=== PATIENT | female | born 1990 ===

== ENCOUNTER 2017-05-05 06:37 | Inpatient (IN) | payer MEDICAID ==
[2017-05-05] MEDS ORDERED: Sodium Chloride 0.9% 1,000 ML IV ONE ×2 (07:28→09:20)
[2017-05-05] MEDS ORDERED: DiphenhydrAMINE 50 mg/ml Inj IVP STA (07:29)
[2017-05-05] MEDS ORDERED: DiphenhydrAMINE 50 mg/ml Inj ONE (07:33)
[2017-05-05] MEDS ORDERED: Sodium Chloride 0.9% 1,000 ML ONE (07:33)
[2017-05-05 07:37] LABS: URINE BACTERIA RARE (<OCC); URINE BILIRUBIN NEGATIVE (NEGATIVE); URINE BLOOD NEGATIVE (NEGATIVE); URINE COLOR Yellow (YELLOW); URINE GLUCOSE (UA) NORMAL (Normal); URINE KETONE NEGATIVE (NEGATIVE); URINE LEUKOCYTE ESTERASE NEG Leu/uL (Negative); URINE PROTEIN 1+ mg/dL (NEGATIVE); URINE UROBILINOGEN NORMAL mg/dL (0.2-1.0); WBC URINE 2 /hpf (0-5)
--- NOTE | 2017-05-05 07:58 | C.PDOC ---
History Of Present Illness 26 y/o female, with no significant PMHx, is brought to ED by ambulance for evaluation of shortness of breath, and anxiety. As per EMS, pt smoked 5 bags of crack and 1 bag of heroin. At present time, pt appears to be anxious, crying, restless, poot historian. Although, pt is complaining of generalized body pain. Otherwise, denies chest pain, palpitations, v/d, weakness. As per EMS reports, 3 small kids were noted in house. As per RN Ray, previous pt 's RN initiated call to DYFs to notified. Time Seen by Provider: 05/05/17 07:19 Chief Complaint (Nursing): Shortness Of Breath History Per: Patient, EMS History/Exam Limitations: no limitations Onset/Duration Of Symptoms: Gradual Current Symptoms Are (Timing): Still Present Associated Symptoms: Anxiety. denies: Sweating, Chest Pain, Bloody Cough, Productive Cough, Dizziness, Light-headedness Additional History Per: EMS Past Medical History Reviewed: Historical Data, Nursing Documentation, Vital Signs Vital Signs: Last Vital Signs Temp 98.6 F 05/05/17 06:42 Pulse 85 05/05/17 06:42 Resp 14 05/05/17 06:56 BP 142/87 05/05/17 06:42 Pulse Ox 100 05/05/17 11:16 - [facility] Procedures DETOXIFICATION SERVICES FOR SUBSTANCE ABUSE TREATMENT (05/31/16) GROUP CAR REPAIRER APPRENTICE FOR SUBSTANCE ABUSE TREATMENT, PSYCHOEDUCATION (05/31/16) Family History: States: Unknown Family Hx - Social History Hx Alcohol Use: No Hx Substance Use: Yes - Immunization History Hx Tetanus Toxoid Vaccination: No Hx Influenza Vaccination: No Hx Pneumococcal Vaccination: No Review Of Systems Except As Marked, All Systems Reviewed And Found Negative. Constitutional: Positive for: Other (generalized body pain). Negative for: Fever, Chills Cardiovascular: Negative for: Chest Pain, Palpitations, Edema, Light Headedness Respiratory: Positive for: Shortness of Breath. Negative for: Cough, Hemoptysis , Sputum Gastrointestinal: Negative for: Nausea, Vomiting, Abdominal Pain Neurological: Negative for: Headache, Dizziness Physical Exam - Physical Exam Appears: Non-toxic, No Acute Distress, Other (anxious) Skin: Normal Color, Warm, Dry, No Rash Head: Atraumatic, Normacephalic Eye(s): bilateral: Normal Inspection Oral Mucosa: Moist, No Drooling Neck: Normal ROM, Supple Chest: Symmetrical Cardiovascular: Rhythm Regular, No Murmur Respiratory: No Accessory Muscle Use, No Rales, No Rhonchi, No Wheezing Gastrointestinal/Abdominal: Soft, No Tenderness Extremity: Normal ROM, No Pedal Edema, No Deformity Extremity: Bilateral: Atraumatic Neurological/Psych: Oriented x3, Other (Responsive to verbal stimuli) ED Course And Treatment - Laboratory Results Result Diagrams: 05/05/17 07:58 05/05/17 07:58 ECG: Interpreted By Me, Viewed By Me ECG Rhythm: Sinus Rhythm ECG Interpretation: No Acute Changes Interpretation Of ECG: Normal axis deviation. No acute ST/T wave changes. Rate From EC (bpm) O2 Sat by Pulse Oximetry: 100 (on RA) Pulse Ox Interpretation: Normal - Radiology CXR: Interpreted by Me, Viewed By Me CXR Interpretation: Yes: No Acute Disease Progress Note: Blood work, UA, CXR, EKG ordered and reviewed. Pt was given Benadryl, and IV fluids. ED OBSERVATION Date of observation admission: 05/05/17 Time of observation admission: 07:15 - Observation admission statement Patient is being placed in observation because:: SOB, multisubstance overdose - Goals of Observation Goals of observation are:: Diagnostics, imaging, sx tx, neuro recheck - Progress Note Progress Note: 05/05/17 At 9"47, pt resting comfortably in bed, not in any apparent distress. Pt is easily awaken to verbal stimuli. AFebrile, hemodynamicaly stable. Neuorlogicaly intact. Blood work review and appears without acute abnormalities, EKG, CXR- normal study. AT 10:18, DYFs at bedside. At present time, pt is more awake, sober, AAO#3, ambulatory in ED with stable gait. Pt denies any somatic complaints at present time. Pt admits, had hx of depression in past, denies use antidepressant medication. As per DYFs, pt is restricted to return home, children in custody of pt's mother now. Pt was offered detox and agrees with plan. Crisis called to evaluate pt for possible detox admission. At 11:01, after pt was evaluated by Crisis and case discussed with , admission to detox accepted. Disposition - Disposition Disposition: HOSPITALIZED Disposition Time: 11:16 Condition: STABLE - Clinical Impression Clinical Impression: Opiate dependence - [place] / SOFTWARE CONFIGURATION MANAGER / Resident Statement MD/DO has reviewed & agrees with the documentation as recorded. - Scribe Statement The provider has reviewed the documentation as recorded by the Scribe Vincent Armstrong All medical record entries made by the Garyibvalentine were at my direction and personally dictated by me. I have reviewed the chart and agree that the record accurately reflects my personal performance of the history, physical exam, medical decision making, and the department course for this patient. I have also personally directed, reviewed, and agree with the discharge instructions and disposition.
[2017-05-05 08:06] LABS: BASO # 0.1 K/uL (0.0-0.2); BASO % 0.7 % (0.0-2.0); EOS # 0.6 K/uL (0.0-0.7); EOS % 3.8 % (0.0-4.0); HEMATOCRIT 40.3 % (34.0-47.0); LYMPH # 6.4 K/uL (1.0-4.3); LYMPH % 41.7 % (20.0-40.0); MEAN CELL VOLUME 77.7 fL (81.0-99.0); MEAN CORPUSCULAR HEMOGLOBIN 26.3 pg (27.0-31.0); MEAN CORPUSCULAR HGB CONC 33.9 g/dL (33.0-37.0); MEAN PLATELET VOLUME 9.5 fL (7.2-11.7); MONO # 0.8 K/uL (0.0-0.8); MONO % 5.1 % (0.0-10.0); NRBC % 0.1 % (0.0-2.0); RED CELL DISTRIBUTION WIDTH 14.3 % (11.5-14.5); WHITE BLOOD COUNT 15.4 K/uL (4.8-10.8)
[2017-05-05 08:19] LABS: ALB/GLOB RATIO 1.3 (1.0-2.1); ALCOHOL SERUM < 10 mg/dl (0-10); ALKALINE PHOSPHATASE 82 U/L (38-126); ALT/SGPT 32 U/L (9-52); AST/SGOT 34 U/L (14-36); BILIRUBIN,TOTAL 0.5 mg/dL (0.2-1.3); BLOOD UREA NITROGEN 11 mg/dL (7-17); CALCIUM 9.7 mg/dl (8.6-10.4); CARBON DIOXIDE 26 mmol/L (22-30); CHLORIDE 98 mmol/L (98-107); GFR AFRICAN-AMERICAN > 60; GLUCOSE,RANDOM 93 mg/dL (65-105); POTASSIUM 2.7 mmol/L (3.6-5.2); SODIUM 142 mmol/L (132-148); TOTAL PROTEIN 7.7 g/dL (6.3-8.3)
--- NOTE | 2017-05-05 10:29 | RAD ---
PROCEDURE: CHEST RADIOGRAPH, 1 VIEW HISTORY: Detox/Psy COMPARISON: None available. FINDINGS: LUNGS: Clear. PLEURA: No pneumothorax or pleural fluid seen. CARDIOVASCULAR: Normal. OSSEOUS STRUCTURES: No significant abnormalities. VISUALIZED UPPER ABDOMEN: Normal. OTHER FINDINGS: None. IMPRESSION: No active disease.
[2017-05-05 11:32] VITALS: RESP 18
[2017-05-05] MEDS ORDERED: Aluminum Hydroxide/Magnesium Hydroxide Susp (30 mL) PO PRN (12:34)
--- NOTE | 2017-05-05 15:20 | PCM.PSYCH ---
Initial Psychiatric Evaluation - Initial Psychiatric Evaluation Type of Admission: Voluntary Legal Status: Capacity Chief Complaint (in patient's own words): "I want to get sober" History of Present Illness and Precipitating Events: Patient is a 26 year old female, single, with 3 children (ages 2, 4, 6), who currently lives with her mother and 3 children in [place]. 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 When questioned about how she supports herself she states "I just don't have money." Patient is cooperative during the interview but seems evasive about some aspects of her history. Patient states that she was smoking last night and couldn't find a health science specialist, so she used the stove and thinks that's why she felt like she was going to pass out. Per ED chart, DYDONG is involved with case, b/c her mo called EMS, like last time and they called the police and DYFS. She implied that they didn't like the fact that she had "too many bottles around." And then of course they found out she was on drugs. Patient has a history of admission for detox in May 2016 at this hospital, after which she was doing well, maintained sobriety and was in an IOP ([facility]). She states that she relapsed in the beginning of March ( approximately 1 month ago) because her mom "called the roof service technician" on her. She was sent to [place] for a psych evaluation at that time and DYFS became involved, resulting in her mother being granted partial custody of her children. Patient reports heroin use for the past 1 month, starting with 10 bags per day and then trying to wean herself down to 2 bags per day more recently. First time use of heroin was in 2012. Patient also admits to using cocaine and crack for the first time 1 week ago, and golden for the first time 2 days ago. She denies use of ETOH or BZDs. At present, patient has mild wdw symptoms. Patient reports a psychiatric history of anxiety and depression; she states she saw a psychiatrist one time in 2014 but stopped seeing him because he wanted to prescribe her medication and she did not want to take any pills. She has not taken any psychiatric medications or seen a psychiatrist since that time. Psychiatric history: anxiety depression Medical history: denies Family history: no history of psychiatric illness or substance use Social history: Single 3 children (ages 2, 4, 6) - patient's mother shares custody Lives with mother and 3 children Unemployed, supposed to start job as junior legal secretary for [employer] tomorrow Not on probation or parole but has an open DYFS case Current Medications: Active Medications Generic Name Dose Route Start Last Admin Trade Name Freq PRN Reason Stop Dose Admin Al Hydrox/Mg Hydrox/Simethicone 30 ml 05/05/17 12:34 Maalox 30 Ml PO TID PRN Indigestion / Heartburn Clonidine HCl 0.1 mg 05/05/17 12:34 Catapres PO Q8 PRN COWS Score More or Equal to 5 Gabapentin 300 mg 05/05/17 18:00 Neurontin PO BID LINA Hydroxyzine HCl 50 mg 05/05/17 12:35 Atarax PO Q6H PRN Anxiety Ibuprofen 600 mg 05/05/17 12:35 Motrin Tab PO Q6H PRN Pain, moderate (4-7) Loperamide HCl 2 mg 05/05/17 12:34 Imodium PO Q8 PRN Diarrhea Ondansetron HCl 4 mg 05/05/17 12:34 Zofran Tab PO Q8 PRN Nausea/Vomiting Trazodone HCl 50 mg 05/05/17 12:35 Desyrel PO HS PRN Insomnia Past Psychiatric History - Past Psychiatric History Previous Treatment History: None Pertinent Medical Hx (Current Medical&Sleep Prob, Allergies): Allergies Allergy/AdvReac Type Severity Reaction Status Date / Time carrot AdvReac Intermediate SHORTNESS Verified 05/05/17 06:50 OF BREATH No Known Home Med 05/05/17 Review of Systems - Neurological Neurological: UNREMARKABLE - Psychiatric Psychiatric: As Per HPI, Abnormal Sleep Pattern, Anxiety. absent: Difficulty Concentrating, Hallucinations, Homicidal Ideation, Suicidal Ideation Mental Status Examination - Personal Presentation Personal Presentation: Looks stated age - Affect Affect: Constricted - Motor Activity Motor Activity: Calm - Reliability in Providing Information Reliability in Providing Information: Fair - Speech Speech: Organized - Mood Mood: Anxious - Formal Thought Process Formal Thought Process: No Impairment - Obsessions/Compulsions Obsessions: No Compulsions: No - Cognitive Functions Orientation: Person, Place, Situation, Time Sensorium: Alert Attention/Concentration: Attentive Estimate of Intelligence: Average Memory: Recent intact, as evidence by: Ability to recall events of the day, Remote intact, as evidenced by: Abilit to recall sig. life events - Risk Risk: Withdrawal, Diminished functioning - Strength & Assets Inventory Strength & Assets Inventory: Family support, Cooperative - Limitations Limitations: Other DSM 5 DX - DSM 5 DSM 5 Diagnosis: Opioid use disorder, severe Opioid withdrawal Cocaine use disorder ANxiety disorder - unspecified - Recommended/Plan of Treatment Treatment Recommendations and Plan of Treatment: Opiate use disorder, severe CBT and [place] psychoeducation supportive therapy, individual therapy Opiate withdrawal Monitor vital signs and withdrawal symptoms Neurontin 300mg PO BID Cocaine use disorder CBT and [place] psychoeducation supportive therapy, individual therapy Projected ELOS: 4-5 days Prognosis: fair
--- NOTE | 2017-05-05 15:23 | PCM.BM ---
<Lo Yepez - Last Filed: 05/05/17 15:21> Treatment Plan Problems - Problems identified on initial assessmt Potential for Opiate withdrawal Date Initiated: 05/05/17 Time Initiated: 15:22 Assessment reference: NA Status: Active Priority: 1 Treatment assets and liabiliti Patient Assests: ADL independent, cognitively intact Patient Liabilities: substance abuse - Milieu Protocol Maintain good personal hygiene: daily Encourage regular showers, daily Remind patient to perform daily oral care, daily Assist patient to perform ADL's Conduct patient checks and document Observation sheet: Q15 minutes Maintain personal safety: every shift Educate patient to report safety concerns to staff, every shift Monitor environment for contraband/sharps Medication safety: Monitor for expected outcome, potential side effects: every shift, Assess barriers to learning: every shift, Assess readiness for medication education: every shift <Loyd Armstrong - Last Filed: 05/05/17 18:36> - Diagnosis (1) Opioid use disorder, severe, dependence Status: Acute Interventions: 05/05/17 18:35 * Assess 7x/week regarding severity of withdrawal * Educate regarding risks, benefits, side effects and alternatives of medications * Use Motivational Interviewing for abstinence * Use CBT for relapse prevention * Medication management for withdrawal symptoms * Encourage medication assisted treatment * (2) Cocaine use disorder, severe, dependence Status: Acute Interventions: 05/05/17 18:36 * Assess 7x/week regarding severity of withdrawal * Educate regarding risks, benefits, side effects and alternatives of medications * Use Motivational Interviewing for abstinence * Use CBT for relapse prevention * Medication management for withdrawal symptoms * Encourage medication assisted treatment * <Krystle Fontenot - Last Filed: 05/06/17 14:05> Family Contact Family involvement: Famliy/SO not involved Family contact: Patient agrees to contact, Telephone contact initiated by staff - Goals for Treatment Patient goals for treatment: Complete detox and comply with [facility] recommendations for aftercare. Discharge/Continuing Care - Education Needs Education Needs: Patient Medication, Patient Diagnosis/Disease Process, Patient Coping Skills, Patient Placement options, Patient Community resources - Discharge Discharge Criteria: No longer exhibiting s/s of withdrawal, Reduction of target symptoms Discharge to:: Substance Abuse Rehab - Treatment Team Participation Patient/Family/SO Statement: 05/06/17 14:05 "I wanna go to short-term rehab before I move to [place]". Discussed with Family/SO: No Was Patient/Family/SO present at Treatment Team Meeting: Yes
[2017-05-05 17:02] LABS: CHLORIDE 106 mmol/L (98-107); SODIUM 142 mmol/L (132-148)
[2017-05-05 17:05] LABS: ALB/GLOB RATIO 1.3 (1.0-2.1); ALKALINE PHOSPHATASE 62 U/L (38-126); AST/SGOT 25 U/L (14-36); BILIRUBIN,TOTAL 0.5 mg/dL (0.2-1.3); BLOOD UREA NITROGEN 8 mg/dL (7-17); CARBON DIOXIDE 26 mmol/L (22-30); GFR AFRICAN-AMERICAN > 60; TOTAL PROTEIN 6.4 g/dL (6.3-8.3)
[2017-05-05 17:06] LABS: ALT/SGPT 34 U/L (9-52); CALCIUM 8.2 mg/dl (8.6-10.4); GLUCOSE,RANDOM 97 mg/dL (65-105)
[2017-05-06 09:16] LABS: MAGNESIUM 1.9 mg/dL (1.6-2.3)
[2017-05-06 09:38] LABS: THYROID STIMULATING HORMONE 0.89 mIU/L (0.46-4.68)
[2017-05-06] MEDS ORDERED: Potassium Chloride 20 mEq ER Tab PO ONE ×2 (12:30→14:30)
--- NOTE | 2017-05-06 13:44 | PCM.PYCHPN ---
Psychiatric Progress Note - Psychiatric Progress Note Patient seen today, length of contact: 16 minutes Patient Chief Complaint: "I'm doing all right" Problems Identified/Issues Discussed: The patient was seen, chart reviewed, case discussed with staff. The patient is compliant with medications and reports no side effects. She states that she's doing all right and slept on and off, waking up 2-3 times during the night. She states that she woke up around 5-6am "gasping for air" and became anxious, but felt better after getting up and sitting in the TV room. At present, patient reports some withdrawal symptoms including anxiety, diarrhea , some muscle pain, runny nose and eye tearing. She sometimes feels her heart racing when she feels anxious. Otherwise she denies nausea, vomiting, shakes, itching skin, auditory/visual hallucinations, or headache. Patient states that she got a call from [employer] and was informed that she will not be allowed back in the house where her children are. She is planning to move to [place] in May and is looking for a treatment facility where she can stay until then. Symptoms are improving but patient needs more time to stabilize. After care discussed, support and psychoeducation given. Medication Change: Yes (detox changes daily) Medical Record Reviewed: Yes Mental Status Examination - Cognitive Function Orientation: Person, Place, Situation, Time Memory: Intact Attention: WNL Concentration: WNL Association: WNL Fund of Knowledge: WNL - Mood Mood: Anxious - Affect Affect: Constricted - Speech Speech: Appropriate - Formal Thought Process Formal Thought Process: No Impairment - Suicidal Ideation Suicidal Ideation: No - Homicidal Ideation Homicidal Ideation: No Goal/Treatment Plan - Goal/Treatment Plan Need for Continued Stay: Remain at risks for inpatient hospitalization, Discharge may exacerbated symptoms, Severe functional impairment Progress Toward Problem(s) and Goals/Treatment Plan: Opioid use disorder, severe CBT and [place] psychoeducation supportive therapy, individual therapy Opioid withdrawal Monitor vital signs and withdrawal symptoms Neurontin 300mg PO BID methadone detox Cocaine use disorder CBT and [place] psychoeducation supportive therapy, individual therapy Estimated Date of D/C: 05/08/17
[2017-05-07 08:12] LABS: BASO % 0.2 % (0.0-2.0); EOS # 0.6 K/uL (0.0-0.7); EOS % 5.2 % (0.0-4.0); LYMPH # 1.7 K/uL (1.0-4.3); LYMPH % 14.4 % (20.0-40.0); MEAN CORPUSCULAR HEMOGLOBIN 26.3 pg (27.0-31.0); MEAN CORPUSCULAR HGB CONC 33.7 g/dL (33.0-37.0); MEAN PLATELET VOLUME 9.7 fL (7.2-11.7); MONO # 0.4 K/uL (0.0-0.8); MONO % 3.1 % (0.0-10.0); NRBC % 0.1 % (0.0-2.0); RED CELL DISTRIBUTION WIDTH 14.3 % (11.5-14.5); WHITE BLOOD COUNT 11.9 K/uL (4.8-10.8)
[2017-05-07 08:26] LABS: CHLORIDE 103 mmol/L (98-107); POTASSIUM 3.6 mmol/L (3.6-5.2); SODIUM 139 mmol/L (132-148)
[2017-05-07 08:29] LABS: CARBON DIOXIDE 24 mmol/L (22-30); GFR AFRICAN-AMERICAN > 60
[2017-05-07 08:30] LABS: BLOOD UREA NITROGEN 8 mg/dL (7-17); CALCIUM 8.5 mg/dl (8.6-10.4); GLUCOSE,RANDOM 114 mg/dL (65-105)
[2017-05-07 13:50] VITALS: O2SAT 97
--- NOTE | 2017-05-07 15:07 | PCM.PYCHPN ---
Psychiatric Progress Note - Psychiatric Progress Note Patient seen today, length of contact: 15 minutes Patient Chief Complaint: "I felt uncomfortable last night" Problems Identified/Issues Discussed: The patient was seen, chart reviewed, and case discussed with staff. Patient is compliant with medications and reports no side effects. Patient states that she became uncomfortable last night, and was feeling nauseous and agitated. She states she tried to sleep it off but later vomited. When questioned regarding recent heroin use, patient states that she tried not to use more than 2 bags of heroin per day in the 3-4 days prior to admission, and was holding herself over by smoking crack. She denies use of painkillers. Patient needs more time to stabilize. After care discussed, support and psychoeducation given. Medication Change: Yes (detox changes daily; Ativan 1mg PO Q6 PRN anxiety ) Medical Record Reviewed: Yes Mental Status Examination - Cognitive Function Orientation: Person, Place, Situation, Time Memory: Intact Attention: WNL Concentration: WNL Association: WNL Fund of Knowledge: WNL - Mood Mood: Anxious - Affect Affect: Constricted - Speech Speech: Appropriate - Formal Thought Process Formal Thought Process: No Impairment - Suicidal Ideation Suicidal Ideation: No - Homicidal Ideation Homicidal Ideation: No Goal/Treatment Plan - Goal/Treatment Plan Need for Continued Stay: Remain at risks for inpatient hospitalization, Discharge may exacerbated symptoms, Severe functional impairment Progress Toward Problem(s) and Goals/Treatment Plan: Opioid use disorder, severe CBT and [place] psychoeducation supportive therapy, individual therapy Opioid withdrawal Monitor vital signs and withdrawal symptoms Neurontin 300mg PO BID methadone detox Cocaine use disorder CBT and [place] psychoeducation supportive therapy, individual therapy Estimated Date of D/C: 05/08/17
[2017-05-07 15:39] VITALS: BP 119/80; PULSE 100; TEMP 98.4
--- NOTE | 2017-05-07 19:40 | PCM.PYCHDC ---
Mental Status Examination - Mental Status Examination Orientation: Person, Place, Situation, Time Memory: Intact Mood: Depressed, Anxious Affect: Constricted Speech: Appropriate Attention: WNL Concentration: WNL Association: WNL Fund of Knowledge: WNL Formal Thought Process: No Impairment Suicidal Ideation: No Current Homicidal Ideation?: No Discharge Summary - Discharge Note Reason for Hospitalization: Opioid detox Laboratory Data: Abnormal Lab Results 05/07/17 05/07/17 08:03 08:03 WBC 11.9 H RBC 5.12 Hgb 13.5 Hct 40.0 MCV 78.0 L MCH 26.3 L MCHC 33.7 RDW 14.3 Plt Count 244 MPV 9.7 Neut % (Auto) 77.1 H Lymph % (Auto) 14.4 L Real % (Auto) 3.1 Eos % (Auto) 5.2 H Baso % (Auto) 0.2 Neut # 9.2 H Lymph # 1.7 Real # 0.4 Eos # 0.6 Baso # 0.0 Sodium 139 Potassium 3.6 Chloride 103 Carbon Dioxide 24 Anion Gap 16 BUN 8 Creatinine 0.6 L Est GFR ( Amer) > 60 Est GFR (Non-Af Amer) > 60 Random Glucose 114 H Calcium 8.5 L Consultations:: List each consultation separately and include: 1. Reason for request. 2. Findings. 3. Follow-up Consultations: None Summary of Hospital Course include:: 1. Description of specific treatment plan utilized for patients during their course of treatmen. 2. Summarize the time- course for resolution of acute symptoms and/or regressed behaviors. 3. Describe issues identified and worked on during hospitalization. 4. Describe medication utilized. 5. Describe medical problems identified and treated. 6. Reassessment of suicide risk Summary of Hospital Course: Patient is a 26 year old female, single, with 3 children (ages 2, 4, 6), who currently lives with her mother and 3 children in [place]. 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 When questioned about how she supports herself she states "I just don't have money." Patient is cooperative during the interview but seems evasive about some aspects of her history. The pt is seen, chart reviewed. On admission: Patient states that she was smoking last night and couldn't find a development educator, so she used the stove and thinks that's why she felt like she was going to pass out. Per ED chart, DYDONG is involved with case, b/c her mo called EMS, like last time and they called the police and DYFS. She implied that they didn't like the fact that she had "too many bottles around." And then of course they found out she was on drugs. Patient has a history of admission for detox in May 2016 at this hospital, after which she was doing well, maintained sobriety and was in an IOP ([facility]). She states that she relapsed in the beginning of March ( approximately 1 month ago) because her mom "called the investment consultant" on her. She was sent to [place] for a psych evaluation at that time and DYFS became involved, resulting in her mother being granted partial custody of her children. Patient reports heroin use for the past 1 month, starting with 10 bags per day and then trying to wean herself down to 2 bags per day more recently. First time use of heroin was in 2012. Patient also admits to using cocaine and crack for the first time 1 week ago, and golden for the first time 2 days ago. She denies use of ETOH or BZDs. At present, patient has mild wdw symptoms. Patient reports a psychiatric history of anxiety and depression; she states she saw a psychiatrist one time in 2014 but stopped seeing him because he wanted to prescribe her medication and she did not want to take any pills. She has not taken any psychiatric medications or seen a psychiatrist since that time. 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 IA and CBT used. The pt attended groups and activities, as well as milieu therapy. All the risks and benefits of medications are discussed and the patient understood and agreed. The pt improved with the treatments provided. However she had to take an extra dose due to a breakthrough withdrawal sxs. After care discussed with the patient. She was interested in rehab and IOP but she had a phone call with her mother today and decided to leave a day early. Reason unknown. Risks discussed incl. relapse, OD and even .. She is also informed that we will have to inform DYFS bc she is going back and leaving [facility]. She still left. - Final Diagnosis (DSM 5) Condition upon Discharge: STABLE DSM 5: Opioid use disorder, severe Opioid withdrawal Cocaine use disorder ANxiety disorder - unspecified Disposition: AGAINST MEDICAL ADVICE Follow-up Treatment Plan: Use relapse prevention skills Return to ER or call 911 if suicidal, homicidal or symptoms relapse. Stay away from stress, alcohol and drugs. See primary doctor once a year.
--- NOTE | 2017-05-09 20:28 | CARD ---
APPROVED REPORT EKG Measurement Heart [id number] <Conclusion> Normal sinus rhythm with sinus arrhythmia rsr in v1 Normal ECG
== END 2017-05-07 16:50 | disposition left against medical advice (07) | DRG 743 ==
LOC: C.ER 06:37 → C.9OBSV 07:20 → C.7D 11:17 → OBSVTOIN 11:17
PROVIDERS: ADMIT Psychiatry & Neurology Psychiatry; ATTEND Psychiatry & Neurology Psychiatry
PROC: HZ2ZZZZ Detoxification Services for Substance Abuse Treatment (ICD-10-PCS; principal; 2017-05-05)
PROC: HZ52ZZZ Individual Psychotherapy for Substance Abuse Treatment, Cognitive-Behavioral (ICD-10-PCS; 2017-05-05)
PROC: HZ59ZZZ Individual Psychotherapy for Substance Abuse Treatment, Supportive (ICD-10-PCS; 2017-05-05)
PROC: HZ56ZZZ Individual Psychotherapy for Substance Abuse Treatment, Psychoeducation (ICD-10-PCS; 2017-05-05)
DX: F11.23 Opioid dependence with withdrawal (principal); F14.20 Cocaine dependence, uncomplicated; F41.9 Anxiety disorder, unspecified; F32.9 Major depressive disorder, single episode, unspecified

== ENCOUNTER 2018-05-30 22:27 | Inpatient (IN) | payer MEDICAID, OTHER ==
[2018-05-31 00:07] LABS: HCG,QUALITATIVE URINE NEGATIVE (NEGATIVE)
[2018-05-31 00:08] LABS: SQUAMOUS EPITHIAL < 1 /hpf (0-5); URINE BILIRUBIN NEGATIVE (NEGATIVE); URINE BLOOD NEGATIVE (NEGATIVE); URINE CLARITY Clear (Clear); URINE COLOR Yellow (YELLOW); URINE GLUCOSE (UA) NORMAL (Normal); URINE LEUKOCYTE ESTERASE NEG Leu/uL (Negative); URINE PROTEIN NEGATIVE (NEGATIVE); URINE UROBILINOGEN NORMAL mg/dL (0.2-1.0)
[2018-05-31 00:09] LABS: BASO # 0.1 K/uL (0.0-0.2); BASO % 0.5 % (0.0-2.0); EOS # 0.3 K/uL (0.0-0.7); EOS % 3.2 % (0.0-4.0); LYMPH # 2.5 K/uL (1.0-4.3); LYMPH % 24.4 % (20.0-40.0); MEAN CELL VOLUME 80.4 fL (81.0-99.0); MEAN CORPUSCULAR HEMOGLOBIN 27.1 pg (27.0-31.0); MEAN CORPUSCULAR HGB CONC 33.8 g/dL (33.0-37.0); MEAN PLATELET VOLUME 9.5 fL (7.2-11.7); MONO # 0.3 K/uL (0.0-0.8); NEUT # 7.1 K/uL (1.8-7.0); NEUT % 68.9 % (50.0-75.0); NRBC % 0.2 % (0.0-2.0); RBC 4.79 Mil/uL (3.80-5.20); RED CELL DISTRIBUTION WIDTH 14.7 % (11.5-14.5); WHITE BLOOD COUNT 10.4 K/uL (4.8-10.8)
[2018-05-31 00:11] LABS: BLOOD UREA NITROGEN 9 mg/dL (7-17); GFR NON-AFRICAN AMERICAN > 60
[2018-05-31 00:12] LABS: ALB/GLOB RATIO 1.4 (1.0-2.1); ALBUMIN 4.1 g/dL (3.5-5.0); ALT/SGPT 17 U/L (9-52); AST/SGOT 23 U/L (14-36); CALCIUM 8.9 mg/dl (8.6-10.4)
[2018-05-31 00:15] LABS: BARBITURATES, UR NEGATIVE (NEGATIVE); PHENCYCLIDINE, UR NEGATIVE (NEGATIVE)
[2018-05-31 00:16] LABS: BENZODIAZEPINES, UR POSITIVE (NEGATIVE); OPIATES, UR POSITIVE (NEGATIVE)
--- NOTE | 2018-05-31 00:45 | C.PDOC ---
History Of Present Illness 27 year old female presents to ED for heroin detox. States she puts it up his nose. Denies any physical complaints. Time Seen by Provider: 05/30/18 23:30 Chief Complaint (Nursing): Substance Abuse History Per: Patient History/Exam Limitations: no limitations Onset/Duration Of Symptoms: Days Current Symptoms Are (Timing): Still Present Past Medical History Reviewed: Historical Data, Nursing Documentation, Vital Signs Vital Signs: Last Vital Signs Temp 99.5 F 05/30/18 22:42 Pulse 92 H 05/30/18 22:42 Resp 18 05/30/18 22:42 BP 139/87 05/30/18 22:42 Pulse Ox 95 05/30/18 22:42 - Medical History PMH: Denies: Diabetes, Hepatitis, HIV, HTN, Seizures, Sexually Transmitted Disease - [facility] Procedures DETOXIFICATION SERVICES FOR SUBSTANCE ABUSE TREATMENT (05/05/17) GROUP NECKTIES PAINTER FOR SUBSTANCE ABUSE TREATMENT, PSYCHOEDUCATION (05/31/16) INDIV PSYCHOTHERAPY FOR SUBSTANCE ABUSE TREATMENT, SUPPORT (05/05/17) INDIV PSYCHOTHERAPY FOR SUBSTANCE ABUSE, COGNITIV BEHAVIORAL (05/05/17) INDIV PSYCHOTHERAPY FOR SUBSTANCE ABUSE, PSYCHOEDUCATION (05/05/17) Family History: States: No Known Family Hx - Social History Hx Alcohol Use: No Hx Substance Use: Yes - Immunization History Hx Tetanus Toxoid Vaccination: No Hx Influenza Vaccination: No Hx Pneumococcal Vaccination: No Review Of Systems Except As Marked, All Systems Reviewed And Found Negative. Constitutional: Negative for: Fever, Chills Cardiovascular: Negative for: Chest Pain Respiratory: Negative for: Shortness of Breath Gastrointestinal: Negative for: Nausea, Vomiting, Diarrhea Neurological: Negative for: Weakness, Numbness Physical Exam - Physical Exam Appears: Non-toxic, No Acute Distress, Other (Pleasant, smiling, cooperative) Skin: Warm, Dry Head: Atraumatic, Normacephalic Eye(s): bilateral: Normal Inspection, PERRL, EOMI Oral Mucosa: Moist Chest: Symmetrical Respiratory: Normal Breath Sounds Gastrointestinal/Abdominal: Soft, No Tenderness Neurological/Psych: Oriented x3, Normal Speech Gait: Steady ED Course And Treatment - Laboratory Results Result Diagrams: 05/30/18 23:54 05/30/18 23:54 Lab Interpretation: Abnormal (tox + opiates, THC, cocaine) Urine POC: Negative O2 Sat by Pulse Oximetry: 95 (RA) Pulse Ox Interpretation: Normal Medical Decision Making Medical Decision Making: Impression: Heroin Detox Plan: --Labs --Urinalysis polysubstance abuse, including opiates Disposition Doctor Will See Patient In The: Hospital Counseled Patient/Family Regarding: Studies Performed, Diagnosis - Disposition Disposition: HOSPITALIZED Disposition Time: 02:58 Condition: GOOD Forms: [facility] (Albanian) - Clinical Impression Clinical Impression: Opiate dependence - Scribe Statement The provider has reviewed the documentation as recorded by the Rosalina Lennon Provider Attestation: All medical record entries made by the Rosalina were at my direction and personally dictated by me. I have reviewed the chart and agree that the record accurately reflects my personal performance of the history, physical exam, medical decision making, and the department course for this patient. I have also personally directed, reviewed, and agree with the discharge instructions and disposition.
[2018-05-31] MEDS ORDERED: Aluminum Hydroxide/Magnesium Hydroxide Susp (30 mL) PO PRN (07:45)
--- NOTE | 2018-05-31 07:45 | PCM.PSYCH ---
Initial Psychiatric Evaluation - Initial Psychiatric Evaluation Type of Admission: Voluntary Legal Status: Capacity Chief Complaint (in patient's own words): I came here to get help.' History of Present Illness and Precipitating Events: This is a 27 years old female who is currently unemployed, came to the [facility] ED to get help in Heroin, Cocaine and Marijuana detox. Patient denies any past history of any inpatient psychiatric hospitalizations and denies any follow-up with any psychiatrist. Patient reports history of more than 1 detox in the past. Her last detox was at last year. Pt. reports that her longest clean time was about 8 months. Pt. reports that she has been using more than 10 bags of heroin intranasally. Yesterday she abused almost 10 bags, started developing withdrawal symptoms, so yesterday she came in to get help in detox. Patient reports withdrawal symptoms including nausea, sweating, cramps, joint pains, headaches and anxiety. Patient reports anxiety and irritability but denies any depressed mood or any feelings of hopelessness, helplessness or worthlessness. Patient denies any auditory or visual hallucinations or any psychotic symptoms. She denies any suicidal ideation or homicidal ideation. She denies any manic symptoms. PMH: None reported Current Medications: Active Medications Generic Name Dose Route Start Last Admin Trade Name Freq PRN Reason Stop Dose Admin Hydroxyzine HCl 25 mg 05/31/18 04:41 05/31/18 05:13 Atarax PO 25 mg Q6 PRN Administration Anxiety Past Psychiatric History - Past Psychiatric History Previous Treatment History: Inpatient Pertinent Medical Hx (Current Medical&Sleep Prob, Allergies): Allergies Allergy/AdvReac Type Severity Reaction Status Date / Time carrot AdvReac Intermediate SHORTNESS Verified 05/05/17 06:50 OF BREATH No Known Home Med 05/05/17 Review of Systems - Review of Systems All systems: reviewed and no additional remarkable complaints except - Psychiatric Psychiatric: Anxiety, Irritability. absent: Suicidal Ideation Mental Status Examination - Personal Presentation Personal Presentation: Looks stated age - Affect Affect: Constricted - Motor Activity Motor Activity: Calm - Reliability in Providing Information Reliability in Providing Information: Fair - Speech Speech: Organized - Mood Mood: Anxious - Formal Thought Process Formal Thought Process: No Impairment - Obsessions/Compulsions Obsessions: No Compulsions: No - Cognitive Functions Orientation: Person, Place - Risk Risk: Withdrawal, Diminished functioning - Limitations Limitations: Living alone DSM 5 DX - DSM 5 DSM 5 Diagnosis: Opioid withdrawal Opioid use disorder severe Cocaine use disorder severe Cannabis use disorder mild - Recommended/Plan of Treatment Treatment Recommendations and Plan of Treatment: Opioid withdrawal Opioid use disorder severe Cocaine use disorder severe Cannabis use disorder mild -Taper with methadone -Gabapentin for augmentation if needed -Trazodone for insomnia -As needed medications -All risks, benefits and alternatives of the meds discussed, and the pt agreed and understood. -Attend groups and activities -Supportive therapy and psychoeducation -KY for abstinence -CBT for relapse prevention -Encourage MAT -Refer to rehab or IOP, and self-help groups -Smoking cessation with [place] -Nicotine patch if needed - Smoking Cessation Smoking Cessation Initiated: No
[2018-05-31] MEDS: Magnesium Hydroxide Susp 30 ml UD PO SCH ×2 (09:50→17:02)
[2018-05-31 15:49] VITALS: RESP 18
[2018-06-01] MEDS: Magnesium Hydroxide Susp 30 ml UD PO SCH ×2 (09:55→17:24)
--- NOTE | 2018-06-01 14:32 | PCM.PYCHPN ---
Psychiatric Progress Note - Psychiatric Progress Note Patient seen today, length of contact: 16 min Patient Chief Complaint: "OK" Problems Identified/Issues Discussed: The pt is seen, chart reviewed, case discussed with staff. The pt is compliant with medications and reports no side-effects. Symptoms are improving but needs more time to stabilize. Pt attends groups and activities. Support given, psycho-education provided. After care discussed. Medication Change: Yes (detox chages daily) Medical Record Reviewed: Yes Mental Status Examination - Cognitive Function Orientation: Person, Place Memory: Intact Attention: Poor Concentration: Poor Association: WNL Fund of Knowledge: WNL - Mood Mood: Anxious - Affect Affect: Constricted - Speech Speech: Appropriate - Formal Thought Process Formal Thought Process: No Impairment - Suicidal Ideation Suicidal Ideation: No - Homicidal Ideation Homicidal Ideation: No Goal/Treatment Plan - Goal/Treatment Plan Need for Continued Stay: Discharge may exacerbated symptoms, Severe functional impairment Progress Toward Problem(s) and Goals/Treatment Plan: Continue medications Support and psychoeducation daily Attend groups and activities daily After care planning by counselors MAT and rehab recommended Estimated Date of D/C: 06/04/18 - Smoking Cessation Smoking Cessation Initiated: Yes
[2018-06-02] MEDS: Magnesium Hydroxide Susp 30 ml UD PO SCH (09:57)
--- NOTE | 2018-06-02 12:50 | PCM.PYCHPN ---
Psychiatric Progress Note - Psychiatric Progress Note Patient seen today, length of contact: 16 min Patient Chief Complaint: "I am still withdrawing" Problems Identified/Issues Discussed: The pt is seen, chart reviewed, case discussed with staff. Support and psychoeducation given, CBT and IN used briefly No new symptoms reported, improving slowly and needs more time No SEs from medications, risks discussed. After care discussed - will try [facility]. Her BF is on the unit too, they are warned. She didn't ask for an extra med for wdw sxs to not extend her stay Medication Change: Yes (detox chages daily) Medical Record Reviewed: Yes Mental Status Examination - Cognitive Function Orientation: Person, Place Memory: Intact Attention: Poor Concentration: Poor Association: WNL Fund of Knowledge: WNL - Mood Mood: Anxious - Affect Affect: Constricted - Speech Speech: Appropriate - Formal Thought Process Formal Thought Process: No Impairment - Suicidal Ideation Suicidal Ideation: No - Homicidal Ideation Homicidal Ideation: No Goal/Treatment Plan - Goal/Treatment Plan Need for Continued Stay: Discharge may exacerbated symptoms, Severe functional impairment Progress Toward Problem(s) and Goals/Treatment Plan: Continue medications Support and psychoeducation daily Attend groups and activities daily After care planning by counselors MAT and rehab recommended Estimated Date of D/C: 06/04/18
--- NOTE | 2018-06-02 12:52 | PCM.BM ---
Treatment Plan Problems - Problems identified on initial assessmt potential for opiate withdrawals Date Initiated: 05/31/18 Assessment reference: NA Status: Active Treatment assets and liabiliti Patient Assests: cooperative, ADL independent, negotiates basic needs, cognitively intact Patient Liabilities: substance abuse - Milieu Protocol Maintain good personal hygiene: daily Encourage regular showers, daily Remind patient to perform daily oral care, daily Assist patient to perform ADL's Conduct patient checks and document Observation sheet: Q15 minutes Maintain personal safety: every shift Educate patient to report safety concerns to staff, every shift Monitor environment for contraband/sharps Medication safety: Monitor for expected outcome, potential side effects: every shift, Assess barriers to learning: every shift, Assess readiness for medication education: every shift Milieu Narrative: Continue medications Support and psychoeducation daily Attend groups and activities daily After care planning by counselors MAT and rehab recommended Discharge/Continuing Care - Treatment Team Participation Patient/Family/SO Statement: Continue medications Support and psychoeducation daily Attend groups and activities daily After care planning by counselors MAT and rehab recommended
[2018-06-02 17:27] VITALS: BP 113/61; PULSE 80; TEMP 98.7; O2SAT 100
--- NOTE | 2018-06-02 20:28 | PCM.PYCHDC ---
Mental Status Examination - Mental Status Examination Orientation: Person, Place, Situation, Time Memory: Intact Mood: Anxious Affect: Constricted Speech: Appropriate Attention: WNL Concentration: WNL Association: WNL Fund of Knowledge: WNL Formal Thought Process: No Impairment Suicidal Ideation: No Current Homicidal Ideation?: No Discharge Summary - Discharge Note Reason for Hospitalization: Opioid detox Consultations:: List each consultation separately and include: 1. Reason for request. 2. Findings. 3. Follow-up Summary of Hospital Course include:: 1. Description of specific treatment plan utilized for patients during their course of treatmen. 2. Summarize the time- course for resolution of acute symptoms and/or regressed behaviors. 3. Describe issues identified and worked on during hospitalization. 4. Describe medication utilized. 5. Describe medical problems identified and treated. 6. Reassessment of suicide risk Summary of Hospital Course: The pt was admitted and started on treatment with psychotherapy, support, psychoeducation and medications. ME and CBT used. All the risks and benefits of medications are discussed and the patient understood and agreed. She left AMA after 2 days - risks discussed but she did not agreed - Final Diagnosis (DSM 5) Condition upon Discharge: GOOD DSM 5: Opioid withdrawal Opioid use disorder severe Cocaine use disorder severe Cannabis use disorder mild Disposition: AGAINST MEDICAL ADVICE Follow-up Treatment Plan: Continue below medications after discharge. Follow after care plan as discussed. Use relapse prevention skills Return to ER or call 911 if suicidal, homicidal or symptoms relapse. Stay away from stress, alcohol and drugs. See primary doctor regularly and get labs.
== END 2018-06-02 18:55 | disposition left against medical advice (07) | DRG 770 ==
LOC: C.ER 22:27 → C.7D 05-31 02:59
PROVIDERS: ADMIT Psychiatry & Neurology Psychiatry; ATTEND Psychiatry & Neurology Psychiatry
PROC: HZ2ZZZZ Detoxification Services for Substance Abuse Treatment (ICD-10-PCS; principal; 2018-05-31)
PROC: HZ46ZZZ Group Counseling for Substance Abuse Treatment, Psychoeducation (ICD-10-PCS; 2018-05-31)
PROC: HZ81ZZZ Medication Management for Substance Abuse Treatment, Methadone Maintenance (ICD-10-PCS; 2018-05-31)
PROC: HZ59ZZZ Individual Psychotherapy for Substance Abuse Treatment, Supportive (ICD-10-PCS; 2018-05-31)
DX: F11.23 Opioid dependence with withdrawal (principal); F14.20 Cocaine dependence, uncomplicated; F12.90 Cannabis use, unspecified, uncomplicated; F41.9 Anxiety disorder, unspecified; F17.210 Nicotine dependence, cigarettes, uncomplicated